=== PATIENT | male | born 1965 | race Caucasian/White ===

== ENCOUNTER 2019-04-17 09:10 | Emergency (ER) | payer BC, OTHER ==
[2019-04-17 09:16] VITALS: BP 182/96; PULSE 103; BMI 30.9
[2019-04-17] MEDS ORDERED: predniSONE 20 MG TABLET (UD) PO ONE (10:02)
[2019-04-17] MEDS ORDERED: ALBUTEROL SO4 2.5/IPRATROPIUM 0.5 INH SOL 3 ML VIAL.NEB. NEB ONE ×3 (10:02→10:24)
--- NOTE | 2019-04-17 10:02 | PDOC ---
History of Present Illness - General Chief Complaint: Respiratory Stated Complaint: SHORTNESS OF BREATH Time Seen by Provider: 04/17/19 09:55 History Source: Patient Exam Limitations: No Limitations - History of Present Illness Initial Comments: 04/17/19 10:11 Patient states is here with asthma exacerbation that is been remittent over the past 2 weeks. States has an albuterol inhaler that he has really needed to use over the past few years and has . But states the past couple days has needed inhalation every 2-3 hours for coughing. Denies fever, denies phlegm production, no one else at home is sick. Is this a multiple visit Asthma Patient?: No Timing/Duration: reports: just prior to arrival Severity: reports: mild, moderate Associated Symptoms: reports: cough, lightheadedness, nasal congestion, wheezing. denies: earache, fever/chills, headache, sore throat Past History - Travel Traveled outside of the country in the last 30 days: No Close contact w/someone who was outside of country & ill: No - Past Medical History Allergies/Adverse Reactions: Allergies Allergy/AdvReac Type Severity Reaction Status Date / Time aspirin Allergy Verified 04/17/19 09:16 Home Medications: Ambulatory Orders Famotidine [Pepcid -] 10 mg PO DAILY PRN #7 tablet 12/27/13 Lisinopril [Prinivil -] 20 mg PO DAILY 12/27/13 Albuterol Sulfate Inhaler - [Ventolin HFA Inhaler -] 1 - 2 inh PO Q4H #1 inhaler 04/17/19 predniSONE [Deltasone -] 20 mg PO BID #8 tablet 04/17/19 Asthma: Yes COPD: No HTN: Yes - Psycho Social/Smoking Cessation Hx Smoking History: Never smoked Have you smoked in the past 12 months: No Hx Alcohol Use: No Substance Use Type: None *Physical Exam - Vital Signs Last Vital Signs Temp Pulse Resp BP Pulse Ox 103 H 18 182/96 H 98 04/17/19 09:14 04/17/19 09:14 04/17/19 09:14 04/17/19 09:14 - Physical Exam General Appearance: Yes: Nourished, Appropriately Dressed, Mild Distress HEENT: positive: ALYSSA, Normal ENT Inspection, TMs Normal, Pharynx Normal Neck: positive: Supple. negative: Lymphadenopathy (R), Lymphadenopathy (L) Respiratory/Chest: positive: Lungs Clear, Rhonchi, Wheezing (Coarse inspiratory and expiratory breath sounds throughout, with diminished bilaterally). negative : Normal Breath Sounds Cardiovascular: positive: Regular Rate Gastrointestinal/Abdominal: positive: Tender, Soft Musculoskeletal: positive: Normal Inspection Extremity: positive: Normal Capillary Refill, Normal Inspection, Normal Range of Motion Integumentary: positive: Normal Color, Dry, Warm, Pale Neurologic: positive: music journalist II-XII NML intact, Fully Oriented, Alert, Normal Mood/ Affect, Normal Response, Motor Strength 10/10 ED Progress Note - Progress Note Progress Note: 04/17/19 10:44 Asthma exacerbation With good resolve from 2 DuoNeb's and 60 mg of prednisone. Will have follow-up with [facility] primary care for continuation of treatment and healthcare needs. Discharge - Discharge Information Problems reviewed: Yes Clinical Impression/Diagnosis: URI (upper respiratory infection) Condition: Stable Disposition: HOME - Admission No - Additional Discharge Information Prescriptions: Albuterol Sulfate Inhaler - [Ventolin HFA Inhaler -] 1 - 2 inh PO Q4H #1 inhaler predniSONE [Deltasone -] 20 mg PO BID #8 tablet - Follow up/Referral Referrals: Rony Garcia MD [Staff Physician] - - Patient Discharge Instructions Patient Printed Discharge Instructions: DI for Viral Upper Respiratory Infection -- Adult Additional Instructions: Rest, drink lots of fluids: Teas, water, soups, Pedialyte Saltwater gargles Steamy showers/seem to face break up mucus Avoid contact with others until fevers and cough resolved Lots of handwashing and good hygiene Continue [id number] medications for symptomatic relief Tylenol or Motrin for fever and pain Continue albuterol nebulizers every 4-6 hours for the next 2 days then as needed for continued cough Prednisone as directed until completed Followup with private physician in one to 2 days Return to emergency department / pediatric hospital for worsened symptoms, fevers, dehydration - Post Discharge Activity Work/Back to School Note: Back to Work
[2019-04-17] MEDS ORDERED: predniSONE 20 MG TABLET (UD) ONE (10:08)
== END 2019-04-17 11:08 | disposition home or self-care (01) ==
LOC: JERFT 09:10
PROC: 3E0F7GC Introduction of Other Therapeutic Substance into Respiratory Tract, Via Natural or Artificial Opening (ICD-10-PCS; principal; 2019-04-17)
PROC: 3E0F7GC Introduction of Other Therapeutic Substance into Respiratory Tract, Via Natural or Artificial Opening (ICD-10-PCS; 2019-04-17)
DX: J45.901 Unspecified asthma with (acute) exacerbation (principal); J06.9 Acute upper respiratory infection, unspecified; I10 Essential (primary) hypertension; Z88.6 Allergy status to analgesic agent
CPT/HCPCS: 99281-25

== ENCOUNTER 2021-02-16 11:12 | Emergency (ER) | payer BC ==
[2021-02-16 11:30] VITALS: BP 168/88; PULSE 95; TEMP 98.4; BMI 30.9
[2021-02-16] MEDS ORDERED: DEXAMETHASONE SOD PHOSPHATE 10 MG/1 ML VIAL IM ONE (11:42)
[2021-02-16] MEDS ORDERED: DEXAMETHASONE SOD PHOSPHATE 10 MG/1 ML VIAL ONE (11:43)
== END 2021-02-16 11:47 | disposition home or self-care (01) ==
LOC: JER 11:12 → JERFT 11:12
PROC: 3E0234Z Introduction of Serum, Toxoid and Vaccine into Muscle, Percutaneous Approach (ICD-10-PCS; principal; 2021-02-16)
DX: L42 Pityriasis rosea (principal)
CPT/HCPCS: 99284-25; J1100

== ENCOUNTER 2023-01-23 10:41 | Emergency (ER) | payer BC ==
[2023-01-23 10:48] VITALS: BMI 31.8
[2023-01-23 13:12] VITALS: BP 155/91; PULSE 79; RESP 17; TEMP 98.3
== END 2023-01-23 13:23 | disposition home or self-care (01) ==
LOC: JERFT 10:41
DX: M79.604 Pain in right leg (principal); M25.561 Pain in right knee
CPT/HCPCS: 73562-TC-RT-FY; 99283-25

== ENCOUNTER 2024-12-01 07:58 | Day surgery (SDC) | payer BC ==
[2024-11-25 08:23] VITALS: BMI 32.5
[2024-12-01 11:33] VITALS: TEMP 98
[2024-12-01 11:43] VITALS: BP 139/81; PULSE 61; RESP 16
== END 2024-12-01 12:11 | disposition home or self-care (01) ==
LOC: JASU-ENDO 07:58
PROVIDERS: ATTEND Internal Medicine Gastroenterology
PROC: 0DJD8ZZ Inspection of Lower Intestinal Tract, Via Natural or Artificial Opening Endoscopic (ICD-10-PCS; principal; 2024-12-01 10:00)
DX: Z12.11 Encounter for screening for malignant neoplasm of colon (principal)